=== PATIENT | female | born 1945 ===

== ENCOUNTER → 2020-05-03 | Outpatient (CLI) | payer MEDICARE | LOC: GMAE 11:58 | PROVIDERS: ATTEND Family Medicine | DX: D51.0 Vitamin B12 deficiency anemia due to intrinsic factor deficiency (principal); D64.9 Anemia, unspecified; E55.9 Vitamin D deficiency, unspecified; R29.6 Repeated falls; S00.522A Blister (nonthermal) of oral cavity, initial encounter ==